=== PATIENT | female | born 1980 | race Caucasian/White ===

== ENCOUNTER 2016-09-29 12:11 | Emergency (ER) | payer SELFPAY ==
[~2016-09-29] VITALS: Ht 160 cm; Wt 74.2 kg
[~2016-09-29 12:11] MED LIST: DOLOPHINE HCL10 MG PO; MS CONTIN,ORAMO60 MG PO; OPANA ER15 MG PO; SOMA350 MG PO; Topamax PO; Zestril,Prinivil PO; Zocor PO
[2016-09-29] MEDS ORDERED: KEFLEX500 MG PO (14:36)
[2016-09-29 14:45] VITALS: BP 124/72
== END 2016-09-29 14:55 | disposition home or self-care (01) ==
LOC: EME 12:11
PROC: 3E0234Z Introduction of Serum, Toxoid and Vaccine into Muscle, Percutaneous Approach (ICD-10-PCS; principal; 2016-09-29)
DX: S01.511A Laceration without foreign body of lip, initial encounter (principal); S50.311A Abrasion of right elbow, initial encounter; Y04.8XXA Assault by other bodily force, initial encounter; Z23 Encounter for immunization; Z87.891 Personal history of nicotine dependence
CPT/HCPCS: 99281; 99284

== ENCOUNTER 2016-12-31 15:29 | Emergency (ER) | payer SELFPAY ==
[~2016-12-31] VITALS: Ht 160 cm; Wt 83.9 kg
[~2016-12-31 15:29] MED LIST changes: +KEFLEX500 MG PO
[2016-12-31] MEDS ORDERED: ATARAX,VISTARIL25 MG PO (15:43)
[2016-12-31] MEDS ORDERED: CELEXA20 MG PO (15:44)
[2016-12-31] MEDS ORDERED: ATARAX,VISTARIL50 MG PO (15:44)
[2016-12-31] MEDS ORDERED: ADVIL200 M1 PO (15:45)
[2016-12-31] MEDS ORDERED: DESYREL 150 MG150 MG PO (15:45)
[2016-12-31 16:15] LABS: HEMATOCRIT 37.8 % (36.0-46.0); MCHC 34.4 G/DL (30.0-36.0); MCV 93.1 FL (83-99); MEAN PLAT.VOLUME 9.4 uM^3 (9.5-12.4); PLATELET COUNT 253 K/uL (156-360); RBC DIS.WIDTH-CV 11.9 % (11.8-14.6); RBC DIS.WIDTH-SD 41.3 % (39-53); RED BLOOD COUNT 4.06 M/uL (3.80-5.20); WHITE BLOOD COUNT 10.3 K/uL (4.1-10.2)
[2016-12-31 16:26] LABS: CHLORIDE 108 mEq/L (99-109); POTASSIUM 3.6 mEq/L (3.7-5.4); SODIUM 141 mEq/L (136-147)
[2016-12-31 16:28] LABS: GLUCOSE 105 mg/dL (70-99)
[2016-12-31 16:29] LABS: ANION GAP 8 MEQ/L (2-14)
[2016-12-31 16:30] LABS: TOTAL BILIRUBIN 0.2 mg/dL (0.0-1.0)
[2016-12-31 16:31] LABS: SERUM ETHYL ALCOHOL < 10 mg/dL
[2016-12-31 16:32] LABS: ALKALINE PHOSPHATASE 53 IU/L (3-129); GFR ESTIMATE (CALCULATED) > 59 mL/min/
[2016-12-31 16:33] LABS: UREA NITROGEN (BUN) 13 mg/dL (9-23)
[2016-12-31 16:35] LABS: LIPASE 35 U/L (1.0-51.0)
[2016-12-31 16:38] LABS: TROP-I INTERPRETATION NEGATIVE; TROPONIN-I < 0.01 ng/mL (0.0-0.30)
[2016-12-31 16:41] LABS: QUANTITATIVE HCG < 4.0 MIU/ML
[2016-12-31 17:14] LABS: ADD MIUA? NO; BILIRUBIN NEGATIVE; BLOOD NEGATIVE; COLOR STRAW ((YELLOW)); GLUCOSE (STRIP) NEGATIVE; KETONES NEGATIVE; LEUKOCYTES NEGATIVE; NITRITE NEGATIVE; PROTEIN (STRIP) NEGATIVE; SPECIFIC GRAVITY 1.006 (1.000-1.030); UCUL ADDED? NO; UROBILINOGEN 0.2 MG/DL (0.2-1.0)
[2016-12-31 17:21] LABS: ADD MEDTOX COMMENT Y; AMPHETAMINE NEGATIVE (500 ng/mL); BARBITURATES NEGATIVE (200 ng/mL); BENZODIAZEPINES NEGATIVE (150 ng/mL); COCAINE NEGATIVE (150 ng/mL); INTERNAL CONTROLS VALID? YES; METHADONE NEGATIVE (200 ng/mL); METHAMPHETAMINE NEGATIVE (500 ng/mL); OPIATES (MORPHINE) PRESUMPTIVE POSITIVE (100 ng/mL); OXYCODONE NEGATIVE (100 ng/mL); PHENCYCLIDINE NEGATIVE (25 ng/mL); PROPOXYPHENE NEGATIVE (300 ng/mL); THC CANNABINOIDS NEGATIVE (50 ng/mL); TRICYCLIC ANTIDEPRESSANTS NEGATIVE (300 ng/mL)
[2016-12-31] MEDS ORDERED: NAPROSYN500 MG PO (18:54)
[2016-12-31] MEDS ORDERED: FLEXERIL10 MG PO (18:54)
[2016-12-31 19:05] VITALS: BP 123/77
== END 2016-12-31 19:07 | disposition home or self-care (01) ==
LOC: EME 15:29
PROVIDERS: Physician Assistant
DX: R10.11 Right upper quadrant pain (principal); R07.89 Other chest pain; F17.210 Nicotine dependence, cigarettes, uncomplicated; Z86.73 Personal history of transient ischemic attack (TIA), and cerebral infarction without residual deficits
CPT/HCPCS: 71020; 74177; 80053; 81003; 83690; 84484; 84702; 84999; 85027; 93005; 99281; 99285; G0480; J1885; J2270; J2405; J3010; J7030

== ENCOUNTER 2017-01-05 21:05 | Inpatient (IN) | payer OTHER ==
[~2017-01-05] VITALS: Ht 160 cm; Wt 83.1 kg
[~2017-01-05 21:05] MED LIST changes: +ADVIL200 M1 PO; +ATARAX,VISTARIL25 MG PO; +ATARAX,VISTARIL50 MG PO; +CELEXA20 MG PO; +DESYREL 150 MG150 MG PO; +FLEXERIL10 MG PO; +NAPROSYN500 MG PO
[2017-01-05 21:29] LABS: HEMATOCRIT 40.9 % (36.0-46.0); MCH 31.8 PG (29.0-34.0); MCHC 34.5 G/DL (30.0-36.0); MCV 92.3 FL (83-99); MEAN PLAT.VOLUME 9.5 uM^3 (9.5-12.4); PLATELET COUNT 250 K/uL (156-360); RBC DIS.WIDTH-CV 12.2 % (11.8-14.6); RBC DIS.WIDTH-SD 41.2 % (39-53); RED BLOOD COUNT 4.43 M/uL (3.80-5.20); WHITE BLOOD COUNT 16.5 K/uL (4.1-10.2)
[2017-01-05 21:42] LABS: CHLORIDE 107 mEq/L (99-109); POTASSIUM 4.3 mEq/L (3.7-5.4); SODIUM 139 mEq/L (136-147)
[2017-01-05 21:44] LABS: GLUCOSE 103 mg/dL (70-99)
[2017-01-05 21:45] LABS: ANION GAP 12 MEQ/L (2-14)
[2017-01-05 21:47] LABS: SERUM ETHYL ALCOHOL < 10 mg/dL
[2017-01-05 21:48] LABS: GFR ESTIMATE (CALCULATED) > 59 mL/min/
[2017-01-05 21:49] LABS: UREA NITROGEN (BUN) 14 mg/dL (9-23)
[2017-01-05] MEDS ORDERED: HYDRALAZINE HCL25 MG PO (22:01)
[2017-01-05] MEDS ORDERED: IBUPROFEN200 M1 PO (22:02)
[2017-01-06 00:27] VITALS: BP 107/71
[2017-01-06 12:47] VITALS: BP 121/75
[2017-01-06 15:21] VITALS: BP 129/74
[2017-01-07 07:52] VITALS: BP 110/60
[2017-01-07 15:16] VITALS: BP 114/56
[2017-01-08 07:28] VITALS: BP 106/58
[2017-01-08 15:37] VITALS: BP 117/61
[2017-01-09 07:28] VITALS: BP 111/56
[2017-01-09 15:37] VITALS: BP 115/65
[2017-01-10 07:18] VITALS: BP 93/49
[2017-01-10] MEDS ORDERED: PROPRANOLOL HCL10 MG PO (08:57)
[2017-01-10] MEDS ORDERED: CELEXA40 MG PO (08:57)
[2017-01-10] MEDS ORDERED: VISTARIL50 MG PO (08:58)
[2017-01-10] MEDS ORDERED: SEROQUEL200 MG PO (08:59)
[2017-01-10 09:02] VITALS: BP 113/71
== END 2017-01-10 11:07 | DRG 885 ==
LOC: EME 21:05 → 1WEST 22:15 → EDOF 22:15 → ENRESERV 22:42 → 1WEST 01-06 00:19
DX: F33.1 Major depressive disorder, recurrent, moderate (principal); R45.851 Suicidal ideations; F11.21 Opioid dependence, in remission; R07.9 Chest pain, unspecified; F41.9 Anxiety disorder, unspecified; Z91.5 Personal history of self-harm; F17.200 Nicotine dependence, unspecified, uncomplicated
CPT/HCPCS: 80048; 85027; 90839; 97150 GO; 97165 GO; 99281; 99285; G0480; Q0177

== ENCOUNTER 2017-01-29 19:51 | Inpatient (IN) | payer OTHER ==
[~2017-01-29] VITALS: Ht 160 cm; Wt 84.0 kg
[~2017-01-29 19:51] MED LIST changes: +CELEXA40 MG PO; +HYDRALAZINE HCL25 MG PO; +IBUPROFEN200 M1 PO; +PROPRANOLOL HCL10 MG PO; +SEROQUEL200 MG PO; +VISTARIL50 MG PO
[2017-01-29 20:45] LABS: HEMATOCRIT 39.2 % (36.0-46.0); MCH 31.8 PG (29.0-34.0); MCHC 34.4 G/DL (30.0-36.0); MCV 92.2 FL (83-99); MEAN PLAT.VOLUME 9.6 uM^3 (9.5-12.4); PLATELET COUNT 283 K/uL (156-360); RBC DIS.WIDTH-CV 11.9 % (11.8-14.6); RBC DIS.WIDTH-SD 40.4 % (39-53); RED BLOOD COUNT 4.25 M/uL (3.80-5.20); WHITE BLOOD COUNT 10.7 K/uL (4.1-10.2)
[2017-01-29 20:52] LABS: CHLORIDE 103 mEq/L (99-109); POTASSIUM 3.5 mEq/L (3.7-5.4); SODIUM 139 mEq/L (136-147)
[2017-01-29 20:54] LABS: GLUCOSE 78 mg/dL (70-99)
[2017-01-29 20:55] LABS: ANION GAP 9 MEQ/L (2-14)
[2017-01-29 20:57] LABS: SERUM ETHYL ALCOHOL < 10 mg/dL
[2017-01-29 20:58] LABS: GFR ESTIMATE (CALCULATED) > 59 mL/min/; UREA NITROGEN (BUN) 15 mg/dL (9-23)
[2017-01-29 21:08] LABS: QUANTITATIVE HCG < 4.0 MIU/ML
[2017-01-30 05:09] VITALS: BP 116/68
[2017-01-30 07:53] VITALS: BP 93/51
[2017-01-30 10:27] VITALS: BP 162/87
[2017-01-30 15:36] VITALS: BP 118/68
[2017-01-31 07:53] VITALS: BP 99/53
[2017-01-31 15:54] VITALS: BP 107/57
[2017-02-01 08:16] VITALS: BP 82/52
[2017-02-01] MEDS ORDERED: SEROQUEL50 MG PO ×2 (12:03→12:04)
== END 2017-02-01 13:34 | disposition other institution (70) | DRG 885 ==
LOC: EME 19:51 → 1WEST 01-30 03:23 → EDOF 01-30 03:23 → ENRESERV 01-30 04:57 → 1WEST 01-30 04:57
DX: F33.2 Major depressive disorder, recurrent severe without psychotic features (principal); F11.20 Opioid dependence, uncomplicated; R45.851 Suicidal ideations; F10.20 Alcohol dependence, uncomplicated; F14.10 Cocaine abuse, uncomplicated; F17.210 Nicotine dependence, cigarettes, uncomplicated; F41.9 Anxiety disorder, unspecified; G47.00 Insomnia, unspecified; R45.1 Restlessness and agitation; Y90.0 Blood alcohol level of less than 20 mg/100 ml; Z56.0 Unemployment, unspecified
CPT/HCPCS: 80048; 84702; 85027; 90839; 97150 GO; 97165 GO; 99281; 99285; G0480; Q0177